=== PATIENT | male | born 1990 | race Caucasian/White ===

== ENCOUNTER 2019-06-26 08:56 | Emergency (ER) | payer BC ==
[~2019-06-26] VITALS: Ht 175.3 cm; Wt 107.3 kg
[2019-06-26 09:06] VITALS: BP 125/74; TEMP 97.3
[2019-06-26] MEDS ORDERED: TAMIFLU 75MG75 MG PO (10:05)
[2019-06-26 10:36] VITALS: PULSE 102
== END 2019-06-26 10:36 | disposition home or self-care (01) ==
LOC: COL.ER 08:56
DX: J10.1 Influenza due to other identified influenza virus with other respiratory manifestations (principal)